=== PATIENT | male | born 1970 | race Caucasian/White ===

== ENCOUNTER 2019-12-07 15:32 | Emergency (ER) | payer OTHER, SELFPAY ==
[2019-12-07 15:39] VITALS: BP 124/88; PULSE 70; RESP 18; TEMP 36.5; O2SAT 100; BMI 21.1
--- NOTE | 2019-12-07 15:45 | DI.RAD.S_ITS ---
PROCEDURE: XR CHEST 2V INDICATIONS: productive coughing x 1 week TECHNIQUE: 2 views of the chest were acquired. COMPARISON: None. FINDINGS: Surgical changes and devices: None. Lungs and pleura: Lungs are clear. No pleural effusions or pneumothorax. Mediastinum: Mediastinal contours are normal. Heart size is normal. Bones and chest wall: No suspicious bony abnormalities. Soft tissues appear unremarkable. IMPRESSION: 1. No acute cardiopulmonary disease. Dictated by: Bonifacio Daily M.D. on 12/07/2019 at 15:01 Approved by: Bonifacio Daily M.D. on 12/07/2019 at 15:05
--- NOTE | 2019-12-07 16:03 | ED.URI ---
HPI - URI/Sore Throat <BERHANE Cam - Last Filed: 12/07/19 19:00> General Chief Complaint: Upper Respiratory Symptoms Stated Complaint: Flu symptoms since monday, thinks Coronavirus Time Seen by Provider: 12/07/19 15:35 Source: patient and family Mode of arrival: Ambulatory Limitations: no limitations History of Present Illness HPI Narrative: The patient is a 49-year-old male nonsmoker who denies pertinent history presents with a chief complaint of fever, cough, chills and upper respiratory symptoms since Monday. He and his present requesting testing for Covid 19. The patient denies any current fevers, denies any shortness of breath, denies any exposure to fu virus positive patient/the patient travel to [place] in 2 weeks ago. He has no travel to [place], [place], inability to [employer] or self chorea. He does not work in healthcare. He tried [id number] measures at home such as Tylenol Motrin to feel better, but states that Motrin made him feel worse. He complains of a productive cough. Review of Systems <BERHANE Cam - Last Filed: 12/07/19 19:00> Review of Systems Narrative: GENERAL: See HPI HEENT: Denies sinus pain, ear pain, sore throat, difficulty swallowing, dizziness. RESPIRATORY: See HPI CARDIOVASCULAR: Denies chest pain, palpitations, orthopnea, edema, GASTROINTESTINAL: Denies nausea, vomiting, abdominal pain, diarrhea, constipation, melena. : Denies dysuria, frequency, incontinence, hematuria, urinary retention. MUSCULOSKELETAL: denies weakness, joint pain, or bony pain SKIN: Denies rash, skin lesions, or other NEUROLOGIC: Denies weakness, headache, numbness, change in speech, confusion, seizures, incoordination. PSYCHIATRIC: No concerning psychosocial issues. 12 point review of systems is negative except for those stated above Patient History <BERHANE Cam - Last Filed: 12/07/19 19:00> Social History Smoking Status: Never smoker Smoking Status: Never smoker Substance Use Type: does not use Exam <BERHANE Cam - Last Filed: 12/07/19 19:00> Narrative Exam Narrative: GENERAL: This is a well-nourished, well-developed patient, in no acute distress HEAD: Atraumatic. Normocephalic. No temporal or scalp tenderness. EYES: Pupils equal round and reactive. Extraocular motions intact. No scleral icterus. No injection or drainage. ENT: Nose without bleeding, purulent drainage or septal hematoma. Throat without erythema, tonsillar hypertrophy or exudate. Uvula midline. Airway patent. NECK: Trachea midline. No JVD or lymphadenopathy. Supple, nontender, no meningeal signs. CARDIOVASCULAR: Regular rate and rhythm RESPIRATORY: Clear to auscultation. Breath sounds equal bilaterally. No wheezes, rales, or rhonchi. No cough. No increased respiratory effort. No accessory muscle use. GASTROINTESTINAL: Abdomen soft, non-tender, nondistended. No hepato-splenomegaly, or palpable masses. No guarding. EXTREMITIES: No clubbing, cyanosis, or edema. No joint tenderness, effusion, or edema noted. BACK: Nontender without deformity or crepitance. No flank tenderness. NEURO: AOx3. Stable gait. SKIN: No rash or erythema on visible skin Initial Vital Signs Initial Vital Signs: Vital Signs Temperature 97.7 F 12/07/19 15:39 Pulse Rate 70 12/07/19 15:39 Respiratory Rate 18 12/07/19 15:39 Blood Pressure 124/88 12/07/19 15:39 Pulse Oximetry 100 12/07/19 15:39 <Raymundo Rosas DO - Last Filed: 12/07/19 19:27> Initial Vital Signs Initial Vital Signs: Vital Signs Temperature 97.7 F 12/07/19 15:39 Pulse Rate 70 12/07/19 15:39 Respiratory Rate 18 12/07/19 15:39 Blood Pressure 124/88 12/07/19 15:39 Pulse Oximetry 100 12/07/19 15:39 Course <BERHANE Cam - Last Filed: 12/07/19 19:00> Orders Ordered: ED Orders 12/07/19 15:45 Chest [XR chest 2V] Stat 12/07/19 15:49 Respiratory Panel (Film Array) Stat Vital Signs Vital signs: Vital Signs - 8 hr 12/07/19 15:39 Temperature 97.7 F Pulse Rate 70 Respiratory Rate 18 Blood Pressure 124/88 Pulse Oximetry 100 <DO Han Fisher Last Filed: 12/07/19 19:27> Orders Ordered: ED Orders 12/07/19 15:45 Chest [XR chest 2V] Stat 12/07/19 15:49 Respiratory Panel (Film Array) Stat Vital Signs Vital signs: Vital Signs - 8 hr 12/07/19 15:39 Temperature 97.7 F Pulse Rate 70 Respiratory Rate 18 Blood Pressure 124/88 Pulse Oximetry 100 MDM - URI/Sore Throat <BERHANE Cam - Last Filed: 12/07/19 19:00> Lab Data Labs: Lab Results 12/07/19 12/07/19 Range/Units 15:49 15:49 Chlamy pneumoniae PCR Not detected (Not Detect) Adenovirus (PCR) Not detected (Not Detect) B.parapertussis DNA PCR Not detected (Not Detect) Coronavirus OC43 (PCR) Not detected (Not Detect) Coronavirus HKU1 (PCR) Not detected (Not Detect) Coronavirus 229E (PCR) Not detected (Not Detect) Coronavirus NL63 (PCR) Not detected (Not Detect) Human Metapneumovir PCR Not detected (Not Detect) Influenza A (RT-PCR) Cancelled Influenza Type A (PCR) Detected H (Not Detect) Influenza B (RT-PCR) Cancelled Influenza Type B (PCR) Not detected (Not Detect) M. pneumoniae (PCR) Not detected (Not Detect) Parainfluenza 1 (PCR) Not detected (Not Detect) Parainfluenza 2 (PCR) Not detected (Not Detect) Parainfluenza 3 (PCR) Not detected (Not Detect) Parainfluenza 4 (PCR) Not detected (Not Detect) RSV (PCR) Not detected (Not Detect) Entero/Rhino (PCR) Not detected (Not Detect) Imaging Data Chest x-ray: Radiologist's Impression: [address] [place] [id number] XRay Report Signed Patient: Bonifacio MarieMR#: [id number] : 1970Acct:[id number] Age/Sex: 49 / MDate of Service: 12/07/19 Loc: ED Accession Number: [id number] Procedure: XR chest 2V Ordering Provider: Viridiana Jo PROCEDURE: XR CHEST 2V INDICATIONS: productive coughing x 1 week TECHNIQUE: 2 views of the chest were acquired. COMPARISON: None. FINDINGS: Surgical changes and devices: None. Lungs and pleura: Lungs are clear. No pleural effusions or pneumothorax. Mediastinum: Mediastinal contours are normal. Heart size is normal. Bones and chest wall: No suspicious bony abnormalities. Soft tissues appear unremarkable. IMPRESSION: 1. No acute cardiopulmonary disease. Dictated by: Bonifacio Daily M.D. on 12/07/2019 at 15:01 Approved by: Bonifacio Daily M.D. on 12/07/2019 at 15:05 [facility] Narrative Medical decision making narrative: The patient is a 49-year-old male who presents with his for chief complaint of fever, cough, congestion and requesting testing for Covid 19. He has not traveled internationally within the past 14 days. He has not been exposed to anybody diagnosed with Covid 19. He denies any shortness of breath, exposure to somebody with known illness or international travel, thus he does not warrant testing for Covid19 at this point time. The patient ended up testing positive for influenza A. He is out of the Tamiflu window. X-ray shows no acute pneumonia. Discussed at length pushing fluids, [id number] medications, follow-up with primary care provider. Patient and elected to leave prior to discharge instructions. <Raymundo Rosas, DO - Last Filed: 12/07/19 19:27> Lab Data Labs: Lab Results 12/07/19 12/07/19 Range/Units 15:49 15:49 Chlamy pneumoniae PCR Not detected (Not Detect) Adenovirus (PCR) Not detected (Not Detect) B.parapertussis DNA PCR Not detected (Not Detect) Coronavirus OC43 (PCR) Not detected (Not Detect) Coronavirus HKU1 (PCR) Not detected (Not Detect) Coronavirus 229E (PCR) Not detected (Not Detect) Coronavirus NL63 (PCR) Not detected (Not Detect) Human Metapneumovir PCR Not detected (Not Detect) Influenza A (RT-PCR) Cancelled Influenza Type A (PCR) Detected H (Not Detect) Influenza B (RT-PCR) Cancelled Influenza Type B (PCR) Not detected (Not Detect) M. pneumoniae (PCR) Not detected (Not Detect) Parainfluenza 1 (PCR) Not detected (Not Detect) Parainfluenza 2 (PCR) Not detected (Not Detect) Parainfluenza 3 (PCR) Not detected (Not Detect) Parainfluenza 4 (PCR) Not detected (Not Detect) RSV (PCR) Not detected (Not Detect) Entero/Rhino (PCR) Not detected (Not Detect) Discharge Plan Departure Patient Disposition: Home Clinical Impression: Influenza Discharge Date/Time: 12/07/19 17:30
[2019-12-07 17:19] LABS: Adenovirus Not Detected (Not Detect); Coronavirus 229E Not Detected (Not Detect); Coronavirus HKU1 Not Detected (Not Detect); Coronavirus NL 63 Not Detected (Not Detect); Coronavirus OC43 Not Detected (Not Detect); Human Metapneumovirus Not Detected (Not Detect)
[2019-12-07 17:20] LABS: Bordetella pertussis Not Detected (Not Detect); Chlamydophila pneumoniae Not Detected (Not Detect); Human Rhinovirus/Enterovirus Not Detected (Not Detect); Influenza A Detected (Not Detect); Influenza B Not Detected (Not Detect); Mycoplasma pneumoniae Not Detected (Not Detect); Parainfluenza Virus 1 Not Detected (Not Detect); Parainfluenza Virus 2 Not Detected (Not Detect); Parainfluenza Virus 3 Not Detected (Not Detect); Parainfluenza Virus 4 Not Detected (Not Detect); Respiratory Syncytial Virus Not Detected (Not Detect)
--- NOTE | 2019-12-07 17:31 | PC.NURSE ---
Pt wanted to leave to catch sharon prior to DC instructions. DC'd by Sandro.
== END 2019-12-07 17:30 | disposition home or self-care (01) ==
PROVIDERS: Emergency Provider Nurse Practitioner Family
DX: J10.1 Influenza due to other identified influenza virus with other respiratory manifestations (principal)
CPT/HCPCS: 71046; 87633; 99283